=== PATIENT | male | born 1975 | race Two or more races ===

== ENCOUNTER 2018-03-01 17:04 | Inpatient (IN) | payer MEDICAID ==
[~2018-03-01] VITALS: Ht 175.3 cm; Wt 100.0 kg
[2018-03-01] MEDS ORDERED: ONDANSETRON ODT 4 MG TAB PO ONE ×2 (17:42→17:45)
[2018-03-01 18:14] LABS: Basophils # (auto) 0 uL; Basophils % (auto) 0.3 % (0.0-2.0); Eosinophils # (auto) 0 uL; Eosinophils % (auto) 0.2 % (0.0-7.0); Hematocrit 48.6 % (41.0-53.0); Hemoglobin 16.7 g/dL (13.5-17.5); Lymphocytes # (auto) 0.6 uL; Mean Corpuscular Hemoglobin 31.6 pg (28.0-32.0); Mean Corpuscular Hgb Conc. 34.4 g/dL (32.0-36.0); Mean Corpuscular Volume 91.9 fL (80.0-100.0); Monocytes # (auto) 0.6 uL; Monocytes % (auto) 3.8 % (0.0-12.0); Neutrophils # (auto) 13.6 uL; Neutrophils % (auto) 91.7 % (37.0-80.0); Platelet Count (auto) 274 10^3/uL (140-450); Red Blood Cells 5.29 10^6/uL (4.5-5.90); Red Cell Distribution Width 13.7 % (11.8-14.3); White Blood Cell 14.8 10^3/uL (4.4-10.8)
[2018-03-01 18:26] LABS: Alanine Aminotransferase 44 U/L (16-61); Albumin 3.7 g/dL (3.4-5.0); Anion Gap 11 (5-15); BUN/Creatinine Ratio 8.5; Blood Urea Nitrogen 12 mg/dL (7-18); Calcium 8.8 mg/dL (8.5-10.1); Carbon Dioxide 24 mmol/L (21-32); Chloride 99 mmol/L (98-107); GFR African American 71 mL/min; GFR Non-African American 59 mL/min; Glucose 187 mg/dL (74-106); Potassium 4.4 mmol/L (3.5-5.1); Sodium 134 mmol/L (136-145)
[2018-03-01 18:31] LABS: Alkaline Phosphatase 94 U/L (45-117); Aspartate Aminotransferase 21 U/L (15-37); Bilirubin, Total 1.9 mg/dL (0.2-1.0); Lactic Acid w/Reflex 2.9 mmol/L (0.4-2.0); Total Protein 8.7 g/dL (6.4-8.2)
[2018-03-01] MEDS ORDERED: ONDANSETRON HCL 4 MG/2 ML VIAL IV ONE (19:00)
[2018-03-01] MEDS ORDERED: SODIUM CHLORIDE 0.9% 1,000 ML IV ONE (19:00)
[2018-03-01] MEDS ORDERED: CEFTRIAXONE SODIUM 2 GM in D5W 5% 50 ML IV ONE (19:00)
[2018-03-01] MEDS ORDERED: HYDROmorphone HCL 2 MG/ML VL ONE (21:32)
[2018-03-01] MEDS: MORPHINE SULF INJ 2 MG/ML SYRINGE 1ML IV ONE (21:33)
[2018-03-01] MEDS ORDERED: VANCOMYCIN 1GM/250ML 250 ML IV ONE ×2 (21:40→21:45)
[2018-03-01] MEDS ORDERED: ACETAMINOPHEN 500 MG TAB PO ONE (21:40)
[2018-03-01] MEDS ORDERED: cefTRIAXone 1GM/10ml IVPUSH 10 ML IV ONE (21:40)
[2018-03-01] MEDS ORDERED: HYDROmorphone HCL 2 MG/ML VL IV ONE (21:45)
[2018-03-01] MEDS ORDERED: diphenhdrAMINE HCL 50 MG/1 ML VL ONE (22:11)
[2018-03-01] MEDS ORDERED: diphenhdrAMINE HCL 50 MG/1 ML VL IV ONE (22:15)
[2018-03-01 22:54] LABS: Urine Bacteria NONE SEEN /hpf (None Seen); Urine Blood Negative /uL (Negative); Urine Mucus FEW (None Seen); Urine Specific Gravity 1.023 (1.001-1.035); Urine WBC <1 /hpf (0 - 3)
[2018-03-02] MEDS ORDERED: PROMETHAZINE HCL 25 MG/ML 1ML IV ONE
[2018-03-02] MEDS ORDERED: diphenhdrAMINE HCL 50 MG/1 ML VL IV ONE
[2018-03-02] MEDS ORDERED: ACETAMINOPHEN 500 MG TAB PO PRN (05:00)
[2018-03-02] MEDS ORDERED: DEXTROSE (50%) 50ML SYRG IV PRN (05:00)
[2018-03-02] MEDS: MORPHINE SULF INJ 2 MG/ML SYRINGE 1ML IV ONE (05:20)
[2018-03-02] MEDS: SODIUM CHLORIDE 0.9% 1,000 ML IV SCH ×2 (05:28→17:01)
[2018-03-02] MEDS: CLINDAMYCIN 600MG IV 50 ML IV SCH ×3 (06:17→21:19)
[2018-03-02] MEDS: ACCU-CHEK COMFORT CURVE STRIP VI SCH ×4 (06:50→21:20)
[2018-03-02] MEDS: InsuLIN REG 1unit/0.01ml Soln (100units/ml) SC SCH ×4 (06:51→21:28)
[2018-03-02 07:26] LABS: Basophils # (auto) 0.1 uL; Basophils % (auto) 0.7 % (0.0-2.0); Eosinophils # (auto) 0 uL; Eosinophils % (auto) 0.6 % (0.0-7.0); Hematocrit 44.5 % (41.0-53.0); Hemoglobin 15.6 g/dL (13.5-17.5); Lymphocytes # (auto) 1.1 uL; Lymphocytes % (auto) 15.1 % (10.0-50.0); Mean Corpuscular Hemoglobin 32.1 pg (28.0-32.0); Mean Corpuscular Volume 91.6 fL (80.0-100.0); Monocytes # (auto) 0.7 uL; Monocytes % (auto) 9.7 % (0.0-12.0); Neutrophils # (auto) 5.3 uL; Neutrophils % (auto) 73.9 % (37.0-80.0); Platelet Count (auto) 237 10^3/uL (140-450); Red Blood Cells 4.86 10^6/uL (4.5-5.90); Red Cell Distribution Width 13.7 % (11.8-14.3); White Blood Cell 7.2 10^3/uL (4.4-10.8)
[2018-03-02 07:48] LABS: BUN/Creatinine Ratio 9.6; Calcium 8.2 mg/dL (8.5-10.1); Potassium 3.9 mmol/L (3.5-5.1)
[2018-03-02] MEDS: MORPHINE SULF INJ 2 MG/ML SYRINGE 1ML IV PRN ×3 (10:14→20:25)
[2018-03-02] MEDS: ONDANSETRON HCL 4 MG/2 ML VIAL IV PRN ×2 (10:14→14:42)
[2018-03-02] MEDS ORDERED: FLUCONAZOLE 200MG/100ML 100 ML IV ONE (12:15)
[2018-03-02] MEDS: diphenhdrAMINE HCL 25 MG CAP PO PRN ×2 (12:47→18:51)
[2018-03-02] MEDS: HYDROcodone-ACET 5/325MG TAB PO PRN ×2 (12:48→17:02)
[2018-03-02 13:00] VITALS: BP 132/74
[2018-03-02 16:50] VITALS: BP 115/67
[2018-03-02] MEDS ORDERED: cefTRIAXone 1GM/10ml IVPUSH 10 ML IV SCH (21:00)
[2018-03-02] MEDS: NYSTATIN TOPICAL POWDER 15GM TOP SCH (21:20)
[2018-03-02 21:39] VITALS: BP 135/87
[2018-03-03] MEDS: diphenhdrAMINE HCL 25 MG CAP PO PRN (01:08)
[2018-03-03] MEDS: MORPHINE SULF INJ 2 MG/ML SYRINGE 1ML IV PRN ×3 (01:17→09:02)
[2018-03-03 05:36] VITALS: BP 128/83
[2018-03-03 06:02] LABS: Basophils # (auto) 0.1 uL; Basophils % (auto) 0.8 % (0.0-2.0); Eosinophils # (auto) 0.2 uL; Eosinophils % (auto) 3.5 % (0.0-7.0); Hematocrit 41.4 % (41.0-53.0); Hemoglobin 14.5 g/dL (13.5-17.5); Lymphocytes # (auto) 1.9 uL; Lymphocytes % (auto) 30.6 % (10.0-50.0); Mean Corpuscular Hemoglobin 32.2 pg (28.0-32.0); Mean Corpuscular Volume 92.1 fL (80.0-100.0); Monocytes # (auto) 0.7 uL; Monocytes % (auto) 10.7 % (0.0-12.0); Neutrophils # (auto) 3.4 uL; Neutrophils % (auto) 54.4 % (37.0-80.0); Nucleated Red Blood Cells % 0.1 %; Platelet Count (auto) 218 10^3/uL (140-450); Red Blood Cells 4.49 10^6/uL (4.5-5.90); Red Cell Distribution Width 13.7 % (11.8-14.3); White Blood Cell 6.3 10^3/uL (4.4-10.8)
[2018-03-03] MEDS: ACCU-CHEK COMFORT CURVE STRIP VI SCH (06:19)
[2018-03-03] MEDS: CLINDAMYCIN 600MG IV 50 ML IV SCH (06:19)
[2018-03-03] MEDS: InsuLIN REG 1unit/0.01ml Soln (100units/ml) SC SCH (06:20)
[2018-03-03 06:33] LABS: BUN/Creatinine Ratio 10.9; Calcium 8.1 mg/dL (8.5-10.1); Potassium 4.3 mmol/L (3.5-5.1)
[2018-03-03] MEDS: SODIUM CHLORIDE 0.9% 1,000 ML IV SCH (07:40)
[2018-03-03 08:00] VITALS: BP 134/83
[2018-03-03] MEDS: NYSTATIN TOPICAL POWDER 15GM TOP SCH (09:47)
== END 2018-03-03 11:30 | disposition home or self-care (01) | DRG 720 ==
LOC: ER 17:10 → TELE 17:11 → TELE-WESTW 03-02 12:28
PROVIDERS: ADMIT Nurse Practitioner Family; ATTEND Internal Medicine
DX: A41.9 Sepsis, unspecified organism (principal); L03.314 Cellulitis of groin; I10 Essential (primary) hypertension; I25.10 Atherosclerotic heart disease of native coronary artery without angina pectoris; B35.6 Tinea cruris; E11.9 Type 2 diabetes mellitus without complications; Z90.81 Acquired absence of spleen; Z88.8 Allergy status to other drugs, medicaments and biological substances
CPT/HCPCS: 36415; 71045; 80048; 80053; 81001; 82962; 83036; 83605; 84484; 85025; 87040; 93005; 93971; 96365; 96375; 96376; J0696; J1450; J1815; J2405; J3490; J7060; Q0162

== ENCOUNTER 2018-10-27 09:05 | Emergency (ER) | payer MEDICAID ==
[~2018-10-27] VITALS: Ht 175.3 cm; Wt 95.3 kg
[2018-10-27 09:20] VITALS: BP 164/110
[2018-10-27] MEDS ORDERED: HYDROcodone-ACET 5/325MG TAB PO ONE (10:30)
[2018-10-27] MEDS ORDERED: KETOROLAC TROMETH 60MG/2ML VIAL IM ONE (10:30)
== END 2018-10-27 10:59 | disposition home or self-care (01) ==
LOC: ER 09:05
DX: S93.401A Sprain of unspecified ligament of right ankle, initial encounter (principal); I10 Essential (primary) hypertension; M54.5 Low back pain; M25.511 Pain in right shoulder; E11.9 Type 2 diabetes mellitus without complications; W20.8XXA Other cause of strike by thrown, projected or falling object, initial encounter; Y93.89 Activity, other specified; Y92.89 Other specified places as the place of occurrence of the external cause; Y99.8 Other external cause status
CPT/HCPCS: 29515; 72100; 73030; 73564; 73610; 96372; 99283; J1885

== ENCOUNTER 2018-11-07 01:06 | Emergency (ER) | payer MEDICAID ==
[~2018-11-07] VITALS: Ht 175.3 cm; Wt 95.3 kg
[2018-11-07 02:02] LABS: Basophils # (auto) 0 uL; Basophils % (auto) 0.7 % (0.0-2.0); Eosinophils # (auto) 0.2 uL; Eosinophils % (auto) 3.5 % (0.0-7.0); Hematocrit 49.4 % (41.0-53.0); Hemoglobin 16.7 g/dL (13.5-17.5); Lymphocytes # (auto) 2.4 uL; Lymphocytes % (auto) 34.8 % (10.0-50.0); Mean Corpuscular Hemoglobin 30.9 pg (28.0-32.0); Mean Corpuscular Hgb Conc. 33.9 g/dL (32.0-36.0); Mean Corpuscular Volume 91.1 fL (80.0-100.0); Monocytes # (auto) 0.6 uL; Monocytes % (auto) 8.2 % (0.0-12.0); Neutrophils # (auto) 3.7 uL; Neutrophils % (auto) 52.8 % (37.0-80.0); Nucleated Red Blood Cells % 0.1 %; Platelet Count (auto) 295 10^3/uL (140-450); Red Blood Cells 5.42 10^6/uL (4.5-5.90); Red Cell Distribution Width 13.4 % (11.8-14.3)
[2018-11-07 02:18] LABS: INR 0.92 (0.9-1.15); Prothrombin Time 9.9 sec (9.27-12.13)
[2018-11-07 02:22] LABS: Alanine Aminotransferase 34 U/L (16-61); Albumin 3.8 g/dL (3.4-5.0); Anion Gap 12 (5-15); Aspartate Aminotransferase 18 U/L (15-37); BUN/Creatinine Ratio 16.8; Blood Urea Nitrogen 25 mg/dL (7-18); Calcium 9.7 mg/dL (8.5-10.1); Carbon Dioxide 22 mmol/L (21-32); Chloride 100 mmol/L (98-107); GFR African American 66 mL/min; GFR Non-African American 55 mL/min; Glucose 346 mg/dL (74-106); Magnesium 2.3 mg/dL (1.6-2.6); Potassium 4.9 mmol/L (3.5-5.1); Sodium 134 mmol/L (136-145)
[2018-11-07 02:26] LABS: Alkaline Phosphatase 109 U/L (45-117); Bilirubin, Total 0.8 mg/dL (0.2-1.0); Total Protein 8.5 g/dL (6.4-8.2)
[2018-11-07 03:54] LABS: Urine Bacteria NONE SEEN /hpf (None Seen); Urine Blood Negative /uL (Negative); Urine Specific Gravity 1.028 (1.001-1.035); Urine WBC <1 /hpf (0 - 3)
[2018-11-07] MEDS ORDERED: HYDROcodone-ACET 10/325MG TAB PO ONE (05:45)
[2018-11-07 06:23] VITALS: BP 149/112
== END 2018-11-07 06:33 | disposition home or self-care (01) ==
LOC: ER 01:09
DX: S09.90XA Unspecified injury of head, initial encounter (principal); T14.8XXA Other injury of unspecified body region, initial encounter; I10 Essential (primary) hypertension; I25.10 Atherosclerotic heart disease of native coronary artery without angina pectoris; E11.9 Type 2 diabetes mellitus without complications; R11.2 Nausea with vomiting, unspecified; W22.8XXA Striking against or struck by other objects, initial encounter; Y93.89 Activity, other specified; Y99.8 Other external cause status; Y92.89 Other specified places as the place of occurrence of the external cause
CPT/HCPCS: 36415; 70450; 71046; 72125; 80053; 81001; 82010; 82962; 83735; 84484; 85025; 85610; 85730; 93005

== ENCOUNTER 2019-02-08 18:17 | Emergency (ER) | payer MEDICAID ==
[~2019-02-08] VITALS: Ht 175.3 cm; Wt 94.3 kg
[2019-02-08 18:29] VITALS: BP 129/99
[2019-02-08] MEDS ORDERED: LIDOCAINE W/ EPINEPHRINE 1% 20ML VIAL SC ONE (19:00)
[2019-02-08] MEDS ORDERED: ACETAMINOPHEN/CODEINE#3 (300/30mg) TAB PO ONE (19:00)
[2019-02-08] MEDS ORDERED: cefTRIAXone SOD 1,000 MG VL IM ONE (19:00)
[2019-02-08] MEDS ORDERED: LIDOCAINE W/ EPINEPHRINE 2% INJ 20ML VIAL IJ ONE (19:30)
== END 2019-02-09 07:07 | disposition home or self-care (01) ==
LOC: ER 18:20
DX: L02.415 Cutaneous abscess of right lower limb (principal); I25.10 Atherosclerotic heart disease of native coronary artery without angina pectoris; E11.9 Type 2 diabetes mellitus without complications; I10 Essential (primary) hypertension
CPT/HCPCS: J0696

== ENCOUNTER 2019-02-08 20:04 | Emergency (ER) | payer MEDICAID | END 2019-02-08 20:27 | disposition left against medical advice (07) | LOC: ER 20:11 | DX: M79.606 Pain in leg, unspecified (principal); Z53.21 Procedure and treatment not carried out due to patient leaving prior to being seen by health care provider ==